=== PATIENT | male | born 1985 | race African-American/Black ===

== ENCOUNTER 2016-05-10 08:31 | Emergency (ER) | payer SELFPAY ==
[~2016-05-10] VITALS: Ht 175.3 cm; Wt 75.0 kg
[2016-05-10] MEDS ORDERED: MAGNESIUM/ALUMINUM HYDROXIDE/SIMETHICONE 30ML UDC PO STA (09:25)
[2016-05-10] MEDS ORDERED: FAMOTIDINE 20MG TABLET PO ONE (09:30)
[2016-05-10 09:35] VITALS: BP 120/63
== END 2016-05-10 10:00 | disposition home or self-care (01) ==
LOC: ER 09:33
DX: K21.9 Gastro-esophageal reflux disease without esophagitis (principal); F17.210 Nicotine dependence, cigarettes, uncomplicated; F12.10 Cannabis abuse, uncomplicated
CPT/HCPCS: 99283

== ENCOUNTER 2016-06-13 23:02 | Emergency (ER) | payer SELFPAY ==
[~2016-06-13] VITALS: Ht 172.7 cm; Wt 63.6 kg
[2016-06-14] MEDS ORDERED: ACETAMINOPHEN 325MG TABLET PO ONE (04:30)
[2016-06-14 05:00] VITALS: BP 116/79
== END 2016-06-14 06:24 | disposition home or self-care (01) ==
LOC: ER 23:03
DX: S00.03XA Contusion of scalp, initial encounter (principal); R68.84 Jaw pain; F12.10 Cannabis abuse, uncomplicated; Y04.2XXA Assault by strike against or bumped into by another person, initial encounter; Y93.89 Activity, other specified; Y92.018 Other place in single-family (private) house as the place of occurrence of the external cause
CPT/HCPCS: 70100; 99284

== ENCOUNTER 2017-03-12 17:28 | Emergency (ER) | payer SELFPAY ==
[~2017-03-12] VITALS: Ht 172.7 cm; Wt 69.0 kg
[2017-03-12 17:40] VITALS: BP 122/56
== END 2017-03-12 22:17 | disposition home or self-care (01) ==
LOC: ER 18:09
DX: S60.221A Contusion of right hand, initial encounter (principal); F12.10 Cannabis abuse, uncomplicated; V09.9XXA Pedestrian injured in unspecified transport accident, initial encounter; Y93.89 Activity, other specified; Y92.89 Other specified places as the place of occurrence of the external cause; Y99.8 Other external cause status
CPT/HCPCS: 29125; 73130; 99284

== ENCOUNTER 2024-01-02 09:01 | Emergency (ER) | payer BC, OTHER ==
[~2024-01-02] VITALS: Ht 175.3 cm; Wt 61.0 kg
[2024-01-02 09:10] VITALS: O2SAT 100
[2024-01-02] MEDS: IBUPROFEN 600MG TABLET PO ONE (10:22)
[2024-01-02] MEDS: ACETAMINOPHEN 325MG TABLET PO ONE (10:29)
[2024-01-02] MEDS ORDERED: IBUP-1523 MT (11:35)
[2024-01-02] MEDS ORDERED: TOPUD MT (11:35)
[2024-01-02 12:08] VITALS: BP 118/74; PULSE 72; RESP 16; TEMP 37.00296; O2SAT 99
== END 2024-01-02 12:15 | disposition home or self-care (01) ==
LOC: ER 09:13
DX: S90.31XA Contusion of right foot, initial encounter (principal); M25.571 Pain in right ankle and joints of right foot; F12.10 Cannabis abuse, uncomplicated; X50.1XXA Overexertion from prolonged static or awkward postures, initial encounter; Y93.01 Activity, walking, marching and hiking; Y92.89 Other specified places as the place of occurrence of the external cause; Y99.8 Other external cause status
CPT/HCPCS: 73610; 73630; 99284